=== PATIENT | female | born 1935 | race Caucasian/White ===

== ENCOUNTER 2017-08-12 15:15 | Inpatient (IN) | payer OTHER ==
[~2017-08-12] VITALS: Ht 165.1 cm; Wt 60.8 kg
[~2017-08-12 15:15] MED LIST: ADEPSIQUE; APAP/HYDROCODON1 T15 PO; COL100 PO; DIFENIDOL; ENALAPRIL; ENALAPRIL MALEA10 MG PO; GLIBENCLAMIDA; GLIPIZIDE5 MG PO; LAC PO; LEVAQUIN750 MG PO; LOVASTATIN PO; LOVASTATIN20 MG PO; METFORMIN HCL1000 MG PO; METFORMINA PO; NORCO1 TA1 PO; PRILOSEC20 MG PO; [UNRECOGNIZED DRUG - OTHER] PO; [UNRECOGNIZED DRUG - OTHER] PO
--- NOTE | 2017-08-12 16:40 | NUR ---
PT RESTING IN BED WITH NO SIGNS OF DISTRESS AT THIS TIME. FAMILY AT BEDSIDE. PER FAMILY, PT HAS HAD GENERALIZED WEAKNESS X 1 WEEK WITH N/V/D YESTERDAY. FAMILY ALSO STATED SHE C/O PAINFUL URINATION IN TRIAGE BUT IS NOW STATING SHE DOES NOT. PER FAMILY, PT HAS BEEN NOTED TO HAVE OCCASIONAL CONFUSION IN THE LAST WEEK.
[2017-08-12 17:10] LABS: BASOPHIL % 0.5 % (0-2); PLATELET COUNT 203 x10^3mcL (130-400)
[2017-08-12 17:12] LABS: RED CELL DISTRIBUTION WIDTH 14.6 % (11.5-14.5)
[2017-08-12 17:19] LABS: CALCIUM 9.4 mg/dL (8.5-10.1); CARBON DIOXIDE 28.8 mmol/L (21-32); CHLORIDE SERUM 97 mmol/L (98-107); CREATININE SERUM 1.5 mg/dL (0.6-1.0); GLUCOSE SERUM 290 mg/dL (74-106); POTASSIUM SERUM 5.2 mmol/L (3.5-5.1); SODIUM SERUM 134 mmol/L (136-145)
[2017-08-12 17:25] LABS: ALBUMIN 3.8 g/dL (3.4-5.0); ALKALINE PHOSPHATASE 74 U/L (46-116); ALT/SGPT 20 U/L (14-59); AST/SGOT 17 U/L (15-37); BILIRUBIN TOTAL 0.3 mg/dL (0.20-1.00); TOTAL PROTEIN, SERUM 8.2 g/dL (6.4-8.2)
[2017-08-12 18:24] LABS: microscopic required? YES; urine erythrocyte TRACE (NEGATIVE)
--- NOTE | 2017-08-12 18:30 | NUR ---
PT RESTING IN BED VISITING WITH FAMILY AT BEDSIDE. NO SIGNS OF DISTRESS AT THIS TIME.
--- NOTE | 2017-08-12 19:15 | NUR ---
PATIENT SEEN IN ROOM , FAMILY AT THE BEDSIDE. PATIENT DENIES ANY PAIN. RESIDENT AT THE BEDSIDE. PATIENT ADMITTED TO THE HOSPITAL.
--- NOTE | 2017-08-12 19:22 | NUR ---
REPORT GIVEN TO JAYSHREE MORA.
[2017-08-12 20:04] VITALS: BP 163/47
--- NOTE | 2017-08-12 20:11 | NUR ---
RECEIVED PT FROM ED VIA GISELLA. TELE 2 PLACED ON PT READING SBR. IV NOTED TO VAIBHAV GALLARDO. INSTRUCTED PT AND FAMILY ON THE USE OF CALL LIGHT FOR ASSISTANCE. ENDORSESD PT TO PRIMARY NURSE ZAHRA
[2017-08-12 20:18] LABS: MAGNESIUM 2.1 mg/dL (1.8-2.4); PHOSPHOROUS 3.6 mg/dL (2.5-4.9)
[2017-08-12 20:20] LABS: CHOLESTEROL/HDL RATIO 2.1
--- NOTE | 2017-08-12 20:41 | NUR ---
RECEIVED PT FROM ABBY ISABEL. PT AOX2, SOME CONFUSION NOTED. SPEECH CLEAR, PT DENIES [place]/ DIZZINESS. TELE #2, SBR, HR 65. DENIES CP/PRESSURE. PULSES PRESENT, NO EDEMA NOTED. LUNG SOUNDS CLEAR, ON RA. DENIES SOB/DIFFICULTY BREATHING. BOWEL SOUNDS ACTIVE. VOIDS FREELY. GENERALIZED WEAKNESS. AMBULATORY WITH ASSISTANCE. SKIN INTACT. IV IN RAC, INTACT AND PATENT. BED IN LOWEST POSITION. CALL LIGHT WITHIN REACH. BED ALARM ON. WILL CONTINUE TO MONITOR.
[2017-08-12 20:43] LABS: T3 TOTAL 0.73 ng/mL
[2017-08-12 20:51] LABS: FREE T4 0.95 ng/dL (0.76-1.46); FREE THYROXINE INDEX 3.6 ug/dL (1.4-4.5); T4(THYROXINE) 9.2 ug/dL (4.7-13.3)
--- NOTE | 2017-08-13 01:45 | NUR ---
PT RESTING IN BED. RR EVEN AND UNLABORED. NO ACUTE DISTRESS NOTED. CALL LIGHT WITHIN REACH. WILL CONTINUE TO MONITOR.
[2017-08-13 05:37] VITALS: BP 142/52
[2017-08-13 06:17] LABS: BASOPHIL % 0.7 % (0-2); PLATELET COUNT 179 x10^3mcL (130-400)
[2017-08-13 06:21] LABS: CALCIUM 8.9 mg/dL (8.5-10.1); CARBON DIOXIDE 30.8 mmol/L (21-32); CHLORIDE SERUM 103 mmol/L (98-107); CREATININE SERUM 1.1 mg/dL (0.6-1.0); GLUCOSE SERUM 168 mg/dL (74-106); MAGNESIUM 2.1 mg/dL (1.8-2.4); PHOSPHOROUS 4.1 mg/dL (2.5-4.9); POTASSIUM SERUM 4.2 mmol/L (3.5-5.1); SODIUM SERUM 139 mmol/L (136-145)
[2017-08-13 06:28] LABS: RED CELL DISTRIBUTION WIDTH 14.7 % (11.5-14.5)
--- NOTE | 2017-08-13 07:51 | NUR ---
AT 0720 - RECEIVED PATIENT FROM NIGHT NURSE. PATIENT AWAKE. APPEARS ORIENTED TO PERSON AND PLACE. MONITOR SHOWING SINUS RHYTHM; RATE 67. IV INFUSING D5 1/2 NS AT 80ML/HR. NPO. ULTRASOUND AT BEDSIDE.
--- NOTE | 2017-08-13 08:48 | NUR ---
SEEN BY DR APPLE DURING MORNING ROUNDS. MEDICAL TEAM JULIA, CHERYL DURHAM AND MYSELF PRIMARY NURSE ALSO PRESENT. DR MARIE SPOKE WITH PATIENT IN [place]UNG[place]. JULIA WILL ALSO SPEAK WITH PATIENT'S FAMILY. CONTINUE TREATMENT FOR UTI.
[2017-08-13 09:15] VITALS: BP 153/57
[2017-08-13 12:37] VITALS: BP 157/58
--- NOTE | 2017-08-13 15:44 | NUR ---
AT 0930 - PATIENT HAS AMBULATED TO BATHROOM WITH ASSISSTANCE. SLOW STEADY GAIT. PATIENT HAS EATEN BREAKFAST. IV FLUID CHANGED TO NS AT 60ML/HR PER NEW ORDERS. AT 1000 - FAMILY NOW AT BEDSIDE. UPDATED ON PLAN OF CARE. AT 1210 - BLOOD GLUCOSE 352. GIVEN 12 UNITS REGULAR INSULIN PER SLIDING SCALE. DIET CHANGED TO CCHO. AT 1300 - PATIENT HAS BEEN SITTING ON SIDE OF BED. AT 1430 - DR LIEBERMAN SPOKE WITH FAMILY. PATIENT IS BACK IN BED, RESTING QUIETLY.
[2017-08-13 16:44] VITALS: BP 156/54
--- NOTE | 2017-08-13 18:27 | NUR ---
PATIENT AWAKE, ALERT AND APPEARS ORIENTED TO PERSON, PLACE AND SITUATION. SITS IN CHAIR FOR MEALS. AMBULATORY TO BATHROOM WITH ASSISSTANCE. HAS URINARY URGENCY AND OCCASIONAL INCONTINENCE. IV INFUSING NS AT 60ML/HR. NO C/O PAIN. WILL ENDORSE CARE TO NIGHT NURSE.
--- NOTE | 2017-08-13 19:10 | NUR ---
REC'D PT FROM DAY NURSE. SON AT BEDSIDE. PT AAOX2. ORIENTED TO NAME AND PLACE ONLY. REORIENTED TO , TIME, AND SITUATION. JAPANESE SPEAKING. SPEECH CLEAR, FOLLOWS COMMANDS, PERRLA. NO SIGNS OF DISTRESS NOTED. PT SITTING AT BEDSIDE. DENIES PAIN OR DISCOMFORT AT THIS TIME. ON TELE 2. DENIES CP, DIZZINESS, OR PALPITATIONS. DENIES RESP DISTRESS OR SOB. BREATHING EVEN/UNLABORED ON RA. NO EDEMA NOTED. DENIES ABD PAIN, TENDERNESS, OR N/V. VOIDING. POSITIVE FOR UTI. USING BSC. UP WITH ASSIST. SKIN INTACT. IV TO RFA PATENT AND INFUSING, SITE WNL. CALL LIGHT WITHIN REACH, BED AT LOWEST POSITION, BED ALARM ON. WILL CONTINUE TO MONITOR.
[2017-08-13 21:09] VITALS: BP 164/51
[2017-08-13 21:40] VITALS: BP 157/59
--- NOTE | 2017-08-14 01:07 | NUR ---
PT RESTING IN BED WITH EYES CLOSED. NO SIGNS OF DISTRESS NOTED. BREATHING EVEN/UNLABORED ON RA. CALL LIGHT WITHIN REACH, BED AT LOWEST POSITION. WILL CONTINUE TO MONITOR.
--- NOTE | 2017-08-14 02:23 | NUR ---
REC'D CALL FROM TELE. PT HAD RUN OF [employer]. PT RESTING IN BED AWAKE. NO COMPLAINTS. DR. STANLEY MADE AWARE. NO CHANGES IN ORDERS AT THIS TIME. WILL CONTINUE TO MONITOR.
[2017-08-14 05:11] VITALS: BP 164/57
--- NOTE | 2017-08-14 06:00 | NUR ---
PT RESTING IN BED AWAKE. NO COMPLAINTS AT THIS TIME. DENIES PAIN OR DISCOMFORT. ORIENTED TO SELF AND PLACE. REORIENTED TO TIME. BS 109, NO COVERAGE. NO SIGNIFICANT CHANGES DURING SHIFT. CALL LIGHT WITHIN REACH, BED AT LOWEST POSITION. WILL ENDORSE TO DAY NURSE.
--- NOTE | 2017-08-14 06:45 | NUR ---
BSP 164/57, HR 64. NITROSTAT GIVEN PER ORDER. NO COMPLAINTS FROM THE PT. WILL RECHECK BP.
[2017-08-14 07:09] VITALS: BP 156/61
--- NOTE | 2017-08-14 07:10 | NUR ---
RECHECKED BP 156/61, MAP 88, HR 63. CARE ENDORSED TO AYAZ MORA.
[2017-08-14 07:29] LABS: BASOPHIL % 0.5 % (0-2); PLATELET COUNT 173 x10^3mcL (130-400)
[2017-08-14 07:31] LABS: RED CELL DISTRIBUTION WIDTH 14.8 % (11.5-14.5)
[2017-08-14 07:37] LABS: AMYLASE 106 U/L (25-115); CALCIUM 9.5 mg/dL (8.5-10.1); CARBON DIOXIDE 30.2 mmol/L (21-32); CHLORIDE SERUM 107 mmol/L (98-107); GLUCOSE SERUM 137 mg/dL (74-106); LIPASE 161 IU/L (73-393); MAGNESIUM 1.7 mg/dL (1.8-2.4); PHOSPHOROUS 4.3 mg/dL (2.5-4.9); POTASSIUM SERUM 4.9 mmol/L (3.5-5.1); SODIUM SERUM 144 mmol/L (136-145)
--- NOTE | 2017-08-14 07:48 | NUR ---
AT 0730 - RECEIVED PATIENT FROM NIGHT NURSE. PATIENT AWAKE, ALERT AND APPEARS ORIENTED. MONITOR SHOWING SINUS RHYTHM; RATE 58. PATIENT REPORTEDLY EPISODE OF BIGEMINY. NO C/O PAIN. RESPIRATIONS REGULAR NO SOB NOTED. IV INFUSING NS AT 60ML/HR. SAT ON SIDE OF BED FOR BREAKFAST.
[2017-08-14 09:15] VITALS: BP 172/63
--- NOTE | 2017-08-14 09:45 | NUR ---
DR LEWIS MADE AWARE OF PATIENT'S PERSISTANT HYPERTENSION.
[2017-08-14 10:18] VITALS: BP 165/62
--- NOTE | 2017-08-14 10:51 | NUR ---
PATIENT AMBULATING IN HALLWAY WITH SON. GOOD ACTIVITY TOLERANCE. ACCORDING TO FAMILY, PATIENT'S MENTAL STAUS HAS IMPROVED SINCE ADMISSION.
[2017-08-14 11:40] VITALS: BP 150/57
--- NOTE | 2017-08-14 11:46 | NUR ---
SEEN BY DR TAMAYO DURING MORNIGN ROUNDS. DR CARPENTER, DR PALACIOS, CHERYL DURHAM AND MYSELF PRIMARY NURSE ALSO PRESENT. DR TAMAYO SPOKE WITH PATIENT AND SON IN IRISH. PLAN TO DC HOME TODAY WITH HOME HEALTH FOR PT.
--- NOTE | 2017-08-14 12:44 | NUR ---
COMMENCED 4 GRAM MAGNESIUM RIDER. TO INFUSE OVER 4 HOURS. PATIENT SITTING IN CHAIR FOR LUNCH.
[2017-08-14] MEDS ORDERED: LEVAQUIN750 MG PO (14:36)
[2017-08-14] MEDS ORDERED: LAC PO (14:36)
--- NOTE | 2017-08-14 14:42 | NUR ---
PT NOTES CHART REVIEWED AND CLEARED FOR PT BY RN. PATIENT SITTING UP IN BEDSIDE CHAIR WITH SON PRESENT, PATIENT ASKS IF POSSIBLE TO RETURN AT LATER TIME TO ALLOW TO REST. PATIENT EXPRESSED WALKING WITH SON EARLIER IN HALLWAY. NO OTHER NEEDS EXPRESSED AT THIS TIME. CALL LIGHT IN REACH. RETURNED AROUND 1420 TO ATTEMPT THERAPY, PATIENT SITTING SITTING UP IN CHAIR WITH 2 SONS PRESENT IN ROOM. PATIENT EXPRESSING WANTING TO REST PRIOR TO D/C FROM HOSPITAL, EDUCATION AND ENCOURAGED CONTINUED HEP PARTICIPATION DAILY AND DEMONSTRATED FEW EXERCISES. NO OTHER NEEDS AT THIS TIME. TRAY AND CALL LIGHT IN REACH. RN AWARE. PVEx2
[2017-08-14 14:57] VITALS: BP 150/57
--- NOTE | 2017-08-14 17:18 | NUR ---
MG MARIA COMPLETED. PATIENT TAKEN OFF CARDIAC MONITORING. IV CATHETER REMOVED INTACT. PREPARED FOR DISCHARGE.
--- NOTE | 2017-08-14 17:46 | NUR ---
PRINTED DISCHARGE INSTRUCTIONS GIVEN AND EXPLAINED TO PATIENT'S SON. PATIENT NOW SITTING IN CHAIR AND EATING DINNER. ELECTRONIC PRESCRIPTION HAS BEEN RECEIVED BY PATIENT'S PHARMACY.
--- NOTE | 2017-08-14 18:08 | NUR ---
AT 1800 - DISCHARGED HOME WITH SON. TAKEN TO CAR IN WHEELCHAIR BY VICENTE.
== END 2017-08-14 17:58 | disposition home health service (06) | DRG 463 ==
LOC: ED 15:15 → DU 18:41
PROVIDERS: Emergency Medicine Emergency Medical Services; ADMIT Family Medicine
DX: N39.0 Urinary tract infection, site not specified (principal); N17.0 Acute kidney failure with tubular necrosis; G93.41 Metabolic encephalopathy; K85.90 Acute pancreatitis without necrosis or infection, unspecified; D68.69 Other thrombophilia; E11.51 Type 2 diabetes mellitus with diabetic peripheral angiopathy without gangrene; E11.65 Type 2 diabetes mellitus with hyperglycemia; E87.1 Hypo-osmolality and hyponatremia; E86.0 Dehydration; E87.5 Hyperkalemia; R31.9 Hematuria, unspecified; D64.9 Anemia, unspecified; Z79.84 Long term (current) use of oral hypoglycemic drugs; F03.90 Unspecified dementia, unspecified severity, without behavioral disturbance, psychotic disturbance, mood disturbance, and anxiety; E78.00 Pure hypercholesterolemia, unspecified
CPT/HCPCS: 82962; 83880; 84439; 97530-GP; J0696; J3475; J3490; J7030; Q0092

== ENCOUNTER 2018-04-29 22:06 | Emergency (ER) | payer OTHER ==
[~2018-04-29] VITALS: Ht 162.6 cm; Wt 68.0 kg
[2018-04-29 22:50] VITALS: Ht 162.6 cm; Wt 68.0 kg
[2018-04-29 23:28] LABS: BASOPHIL % 0.6 % (0-2); PLATELET COUNT 218 x10^3mcL (130-400)
[2018-04-29 23:35] LABS: RED CELL DISTRIBUTION WIDTH 15.7 % (11.5-14.5)
[2018-04-29 23:50] LABS: T3 TOTAL 0.73 ng/mL
[2018-04-29 23:52] LABS: CALCIUM 10.2 mg/dL (8.5-10.1); CARBON DIOXIDE 25.3 mmol/L (21-32); CHLORIDE SERUM 103 mmol/L (98-107); CK-MB 0.5 ng/mL (0-3.6); CREATININE SERUM 1.2 mg/dL (0.6-1.0); GLUCOSE SERUM 156 mg/dL (74-106); POTASSIUM SERUM 4.4 mmol/L (3.5-5.1); SODIUM SERUM 138 mmol/L (136-145)
[2018-04-30 00:05] LABS: ALKALINE PHOSPHATASE 67 U/L (46-116); ALT/SGPT 22 U/L (14-59); AST/SGOT 19 U/L (15-37); BILIRUBIN TOTAL 0.2 mg/dL (0.20-1.00); TOTAL PROTEIN, SERUM 7.7 g/dL (6.4-8.2)
[2018-04-30 00:24] LABS: ALBUMIN 3.1 g/dL (3.4-5.0)
[2018-04-30 00:45] LABS: ERYTHROCYTE SED RATE 73 mm/hr (0-30); FREE T4 1.26 ng/dL (0.76-1.46); FREE THYROXINE INDEX 2.8 ug/dL (1.4-4.5); T4(THYROXINE) 7.3 ug/dL (4.7-13.3)
[2018-04-30 01:29] VITALS: BP 141/76
[2018-04-30 01:55] LABS: microscopic required? NO
[2018-04-30 02:23] LABS: UA SPECIFIC GRAVITY <=1.005 (1.005-1.035); urine erythrocyte NEGATIVE (NEGATIVE)
[2018-04-30 02:33] LABS: AMPHETAMINE QUAL UR NONE DETECTED (See below)
== END 2018-04-30 01:29 | disposition home or self-care (01) ==
LOC: ED 22:06
PROVIDERS: Specialist
DX: F03.90 Unspecified dementia, unspecified severity, without behavioral disturbance, psychotic disturbance, mood disturbance, and anxiety (principal); R41.82 Altered mental status, unspecified; I10 Essential (primary) hypertension; E11.9 Type 2 diabetes mellitus without complications
CPT/HCPCS: 36415; 83880; 84439; G0480; J7040; Q0092